=== PATIENT | male | born 1990 | race Caucasian/White ===

== ENCOUNTER → 2017-02-17 | Outpatient (CLI) | payer MEDICAID | LOC: FIMAGING 08:21 | PROVIDERS: ATTEND Physician Assistant | DX: R10.9 Unspecified abdominal pain (principal) ==

== ENCOUNTER 2018-04-12 13:28 | Day surgery (SDC) | payer MEDICAID ==
--- NOTE | 2018-04-12 13:28 | PDHPUP ---
History & Physical Update H&P update statement: This history and physical update is based on an assessment of the patient which was completed after admission or registration (within 24 hours), but prior to the surgery/procedure. H&P update: changes noted (Preop HCG level is elevated; therefore, will have pt. undergo CT & CXR imaging prior to hospital discharge postop)
[2018-04-12] MEDS ORDERED: ceFAZolin 2 GM/DEXTROSE 100 ML IV ONE (13:48)
[2018-04-12] MEDS ORDERED: LR 1,000 ML IV ONE (13:49)
[2018-04-12] MEDS ORDERED: BUPIVACAINE 0.5% 30 ML SDV ONE (15:15)
[2018-04-12] MEDS ORDERED: MIDAZOLAM 2 MG/2 ML VIAL IVP ONE (15:15)
--- NOTE | 2018-04-12 15:17 | PDANEPAE ---
ANE History of Present Illness r orchiectomy ANE Past Medical History - Cardiovascular History Hx Hypertension: No Hx Arrhythmias: No Hx Chest Pain: No Hx Coronary Artery / Peripheral Vascular Disease: No Hx CHF / Valvular Disease: No Hx Palpitations: No - Pulmonary History Hx COPD: No Hx Asthma/Reactive Airway Disease: Yes Hx Recent Upper Respiratory Infection: No Hx Oxygen in Use at Home: No Hx Sleep Apnea: No Sleep Apnea Screening Result - Last Documented: Negative Pulmonary History Comment: hx of bronchitis. asthma since he was an infant - Neurologic History Hx Cerebrovascular Accident: No Hx Seizures: No Hx Dementia: No - Endocrine History Hx Diabetes: No - Renal History Hx Renal Disorders: No - Liver History Hx Hepatic Disorders: Yes Hepatic History Comment: gilbert's syndrome - Neurological & Psychiatric Hx Hx Neurological and Psychiatric Disorders: No - Cancer History Hx Cancer: No - Congenital Disorder History Hx Congenital Disorders: No - GI History Hx Gastrointestinal Disorders: Yes Gastrointestinal History Comment: occ reflux - Other Health History Other Health History: none - Chronic Pain History Chronic Pain: No - Surgical History Prior Surgeries: left meniscus repair 2009 ANE Review of Systems Review of Systems: - Exercise capacity METS (RN): 4 METS ANE Patient History - Allergies Allergies/Adverse Reactions: No Known Allergies Allergy (Verified 04/12/18 14:08) - Home Medications Home Medications: Fexofenadine HCl 180 mg PO DAILY 04/11/18 [Last Taken 04/11/18] Herbals/Supplements -Info Only 04/11/18 [Last Taken 04/11/18] Proair Hfa 04/11/18 [Last Taken 04/05/18] - NPO status NPO Since - Liquids (Date): 04/12/18 NPO Since - Liquids (Time): 10:00 NPO Since - Solids (Date): 04/11/18 NPO Since - Solids (Time): 20:00 - Smoking Hx Smoking Status: Heavy smoker - Family Anes Hx Family Hx Anesthesia Complications: none ANE Labs/Vital Signs - Vital Signs Blood Pressure: 145/85 Heart Rate: 72 Respiratory Rate: 12 O2 Sat (%): 96 Height: 185.42 cm Weight: 88.451 kg ANE Physical Exam - Airway Neck exam: FROM Mallampati Score: Class 1 Mouth exam: normal dental/mouth exam - Pulmonary Pulmonary: no respiratory distress - Cardiovascular Cardiovascular: regular rate and rhythym - ASA Status ASA Status: II ANE Anesthesia Plan Anesthesia Plan: general endotracheal anesthesia
[2018-04-12] MEDS ORDERED: fentaNYL 100 MCG/2 ML INJ ONE ×3 (15:21→17:01)
[2018-04-12] MEDS ORDERED: ROCURONIUM 50 MG/5 ML VIAL ONE (15:21)
[2018-04-12] MEDS ORDERED: PROPOFOL 200 MG/20 ML VIAL ONE (15:21)
[2018-04-12] MEDS ORDERED: HYDROmorphONE/DILAUDID 1 MG/ML INJ IVP PRN (15:54)
[2018-04-12] MEDS ORDERED: ONDANSETRON 4 MG/2 ML VIAL IVP PRN (15:54)
[2018-04-12] MEDS ORDERED: PROMETHAZINE HCL 25 MG/ML INJ IVP PRN (15:54)
[2018-04-12] MEDS ORDERED: NALOXONE HCL 0.4 MG/ML INJ IVP PRN (15:54)
[2018-04-12] MEDS ORDERED: EPINEPHrine 1 MG/ML INJ ONE (16:06)
[2018-04-12] MEDS ORDERED: DEXAMETHASONE 4 MG/ML VIAL ONE (16:45)
[2018-04-12] MEDS ORDERED: ONDANSETRON 4 MG/2 ML VIAL ONE ×2 (16:45→20:13)
--- NOTE | 2018-04-12 16:51 | POSTANESTH ---
Post Anesthetic Evaluation Cardiovascular Status: Normal, Stable Respiratory Status: Normal, Stable Level of Consciousness/Mental Status: Can Participate in Eval Pain Control: Adequate, Prn Tx Ordered Nausea/Vomiting Control: Adequate, Prn Tx Ordered Complications Possibly Related to Anesthesia: None Noted
--- NOTE | 2018-04-12 17:00 | POSTOPPROG ---
Post Op Note Date of Operation: 04/12/18 Surgeon: Wolf Arellano (# [id number]) Anesthesia: LMA, Local (Specify) (27 cc of 0.5% Marcaine w/ epi) Pre-op Diagnosis: Right testis mass Post-op Diagnosis: Right testis mass Procedure: Right radical orchiectomy Findings: See op note Inf/Abcess present in the surg proc area at time of surgery?: No EBL: Minimal (< 10 cc) Complications: None Specimen(s): Right testis
[2018-04-12] MEDS: fentaNYL 100 MCG/2 ML INJ IVP PRN ×2 (17:04→17:16)
[2018-04-12] MEDS ORDERED: ALBUTEROL 3 ML DEYVIAL ONE (17:26)
[2018-04-12] MEDS: HYDROCODONE/APAP 5/325 TAB PO PRN ×2 (17:46→19:02)
[2018-04-12] MEDS ORDERED: HYDROCODONE/APAP 5/325 TAB ONE ×2 (17:46→19:02)
--- NOTE | 2018-04-12 18:28 | GOP ---
DATE OF OPERATION: 04/12/2018 SURGEON: Wolf Arellano MD ANESTHESIA: Laryngeal mask with local. PREOPERATIVE DIAGNOSIS: Abnormal right testis mass with elevated HCG. POSTOPERATIVE DIAGNOSIS: Abnormal right testis mass with elevated HCG. PROCEDURE PERFORMED: Right radical inguinal orchiectomy. FINDINGS: No obvious extension of malignancy outside of the tunica vaginalis. SPECIMENS: Right testis and proximal spermatic cord. ESTIMATED BLOOD LOSS: Minimal (< 10 cc). INDICATIONS: This gentleman presented recently with a right-sided testis mass that was confirmed to be a solid heterogeneous mass worrisome for malignancy on preoperative sonography. Testicular tumor markers were obtained. An HCG was noted to be elevated. Patient presents for operative management at this time. The indications for the procedures as well as potential risks and complications were discussed with the patient preoperatively. He appeared to understand. His questions were answered, and he wished to proceed. Written informed surgical consent was thereafter obtained. DESCRIPTION OF PROCEDURE: The patient was brought to the operating room and administered laryngeal mask anesthesia. He was carefully placed in the supine position on the operating room table. The abdomen and genitalia were sterilely prepped with Betadine scrub and paint, then draped in usual sterile fashion. A total of 27 cc of 0.5% Marcaine with epinephrine was used for local anesthetic in the right inguinal region. A right inguinal incision was made with a scalpel and carried through the superficial tissue down to the external oblique aponeurosis with electrocautery. There were a couple of small superficial veins that were encountered, and these were ligated with 3-0 Vicryl free ties as necessary. The external oblique aponeurosis was opened along the length of the inguinal canal with a scalpel, and this incision was carried through the external inguinal ring using scissors. The underlying ilioinguinal nerve was identified and dissected from the underlying spermatic cord and kept out of harm 's way as much as possible. The spermatic cord was then isolated at the level of the pubic tubercle with a right angle clamp, followed by a quarter-inch Yoselin drain which was used at the level of the internal ring as a tourniquet. The testis was then inverted into the inguinal wound from the scrotum. The gubernacular attachments were ligated with 3-0 Vicryl free ties and divided with scissors. The testis was then divided into 2 segments, 1 compromising primarily the vas deferens and the remainder of the spermatic cord in the other segment. Separation was made just distal to the Yoselin drain. 2-0 Silk free ties and stick ties were then used to ligate the spermatic cord at this location. The proximal spermatic cord and attached testis were then transected and delivered to Pathology for histologic examination. The [place] tourniquet was then removed, and hemostasis of the cord stump was confirmed. One of the silk sutures was left slightly longer in case it needed to be later identified for retroperitoneal lymph node dissection purposes. The wound was then carefully inspected, and there was no bleeding identified. The ilioinguinal nerve appeared to be intact. The external oblique aponeurotic fibers were then reapproximated over the ilioinguinal nerve with a running 2-0 Vicryl suture. Phu fascia was closed with a running identical stitch. The skin was reapproximated with a 4-0 Monocryl subcuticular suture. The wound was then dressed with Dermabond. The patient was then awakened, transferred to his bed, and taken to the recovery room. He tolerated the procedure well overall. COMPLICATIONS: None. DISPOSITION: He was transferred to the recovery room in stable condition. Prior to discharge, he will undergo CT scan and chest x-rays for further cancer staging. /[id number]/MODL MTDD
[2018-04-12] MEDS ORDERED: ALBUTEROL 3 ML DEYVIAL IH ONE (18:30)
[2018-04-12] MEDS ORDERED: IOPAMIDOL (ISOVUE-300) 100 ML BTL ONE (18:38)
[2018-04-12 20:19] VITALS: BP 120/69
== END 2018-04-12 20:24 | disposition home or self-care (01) ==
LOC: FSGY 13:28
PROVIDERS: ATTEND Specialist
PROC: 0VT90ZZ Resection of Right Testis, Open Approach (ICD-10-PCS; principal; 2018-04-12 15:00)
DX: C62.91 Malignant neoplasm of right testis, unspecified whether descended or undescended (principal)
CPT/HCPCS: J0171; J0690; J1100; J2250; J2405; J2704; J3010; J7613; Q9967

== ENCOUNTER 2018-04-18 18:17 | Emergency (ER) | payer MEDICAID ==
--- NOTE | 2018-04-18 18:48 | EDPHY ---
H & P Time Seen by Provider: 04/18/18 18:35 HPI/ROS: CHIEF COMPLAINT: Scrotal ecchymosis HISTORY OF PRESENT ILLNESS: Patient had orchidectomy right side on last the now presents with ecchymosis in his scrotum and penis. Patient is concerned that he also feels a little bit of a hard lump proximally on the right side on the surgical area. Does not have pain but noticed bruising in his scrotum and along his penis, with a little bit of swelling of the base of his penis. Not associated with redness or fever or discharge from the wound or vomiting. REVIEW OF SYSTEMS: Some pain with urination. No hematuria. PAST MEDICAL HISTORY: As in HPI. Also has asthma General Appearance: Alert and conversant, cooperative. Abdomen soft and nontender. Right lower abdominal incision has skin adhesive and is clean dry and intact. Patient has some ecchymosis at the base of his penis and scrotum but it is not red or warm to the touch or swollen, no lymphangitis. No open sores. Not tender to palpation. No masses palpated inside scrotum except for his left testicle. No tenderness there. No fluctuance. No redness and no warmth. Emergency Department course/MDM: Consultation with [facility], paged [phone]. Vital signs are noted afebrile, heart rate 69, blood pressure 106/81. 1930: discussed in detail with Margarita Stout for Urology, she recommends no further action in the emergency department, will be seen by Dr. Arellano tomorrow in office. Patient states he is comfortable with the plan. Smoking Status: Heavy smoker Constitutional: Initial Vital Signs Temperature (C) 36.7 C 04/18/18 18:24 Heart Rate 69 04/18/18 18:24 Respiratory Rate 18 04/18/18 18:24 Blood Pressure 106/81 H 04/18/18 18:24 O2 Sat (%) 99 04/18/18 18:24 O2 Delivery Mode Room Air Allergies/Adverse Reactions: No Known Allergies Allergy (Verified 04/18/18 18:23) Home Medications: Medication Instructions Recorded Fexofenadine HCl 180 mg PO DAILY 04/11/18 Herbals/Supplements -Info Only 04/11/18 Proair Hfa 04/11/18 MDM/Departure - Depart Disposition: Home, Routine, Self-Care Clinical Impression: scrotal ecchymosis Condition: Good Instructions: Orchiectomy (DC) Additional Instructions: Please call the office tomorrow at 9:00 a.m., Dr. Arellano would like to see you in the office tomorrow. Referrals: Jacquelin Perez MD [Primary Care Provider] - As per Instructions Wolf Arellano MD [Medical Doctor] - 1 day without fail
[2018-04-18 19:41] VITALS: BP 110/71
== END 2018-04-18 19:41 | disposition home or self-care (01) ==
DX: R23.3 Spontaneous ecchymoses (principal)